=== PATIENT | female | born 1990 | race Caucasian/White ===

== ENCOUNTER 2023-04-16 14:33 | Outpatient (CLI) | payer MEDICAID, SELFPAY | END 2023-04-16 14:34 | disposition home or self-care (01) | PROVIDERS: PCP Nurse Practitioner Family; Visit Provider Nurse Practitioner Family | DX: R10.9 Unspecified abdominal pain (principal) | CPT/HCPCS: 80053; 82150; 83690; 85025 ==

== ENCOUNTER 2023-04-18 09:00 | Outpatient (CLI) | payer MEDICAID, SELFPAY | END 2023-04-18 09:01 | disposition home or self-care (01) | LOC: NFLDREF 23:51 | PROVIDERS: PCP Nurse Practitioner Family; Referring Provider Nurse Practitioner Family; Visit Provider Nurse Practitioner Family | DX: R10.9 Unspecified abdominal pain (principal) | CPT/HCPCS: 87338 ==